=== PATIENT | female | born 1980 | race Caucasian/White ===

== ENCOUNTER 2018-06-01 09:02 | Emergency (ER) | payer MEDICAID ==
[~2018-06-01] VITALS: Ht 175.3 cm; Wt 74.6 kg
[2018-06-01 09:05] VITALS: BP 121/90
--- NOTE | 2018-06-01 09:40 | NUR ---
PT BIB SELF FOR SWOLLEN LEFT SIDE OF FACE AND PAIN. PT STATES SHE WAS GOING TO GO TO THE DENTIST THIS MORNING FOR A TOOTHACE SHE HAS BEEN HAVING BUT WOKE UP WITH SWOLLEN LEFT SIDE OF FACE. PT STATES THROBBING PAIN, 6/10, CONSTANT. VSS; PATIENT POSITIONED FOR COMFORT; HOB ELEVATED; BEDRAILS UP X1; BED DOWN. ER MD MADE AWARE OF PT STATUS.
[2018-06-01] MEDS ORDERED: PENICILLIN V POTASSIUM 250 MG TAB PO ONE (09:50)
[2018-06-01 10:48] VITALS: BP 121/90
--- NOTE | 2018-06-01 10:49 | NUR ---
Patient discharged with v/s stable. Written and verbal after care instructions given and explained. Patient alert, oriented and verbalized understanding of instructions. Ambulatory with steady gait. All questions addressed prior to discharge. ID band removed. Patient advised to follow up with PMD. Rx of IBUPROFEN AND PENICILLIN given. Patient educated on indication of medication including possible reaction and side effects. Opportunity to ask questions provided and answered.
== END 2018-06-01 10:49 | disposition home or self-care (01) ==
LOC: MED 09:02
DX: K04.7 Periapical abscess without sinus (principal); Z88.2 Allergy status to sulfonamides; Z88.8 Allergy status to other drugs, medicaments and biological substances
CPT/HCPCS: 99283

== ENCOUNTER 2022-03-24 10:59 | Day surgery (SDC) | payer OTHER ==
[~2022-03-24] VITALS: Ht 175.3 cm; Wt 83.9 kg
[2022-03-24] MEDS ORDERED: PROPOFOL 200 MG/20 ML VIAL IV ONE ×3 (11:25→12:22)
[2022-03-24] MEDS ORDERED: fentaNYL citrate 0.05 MG/ML VIAL ONE (11:25)
[2022-03-24 11:48] LABS: BASOPHILS # (AUTO) 0.1 K/uL (0.00-0.22); EOSINOPHILS # (AUTO) 0.3 K/uL (0-0.4); EOSINOPHILS % (AUTO) 3.6 % (0.0-4.0); HEMATOCRIT 37.6 % (36-48); HEMOGLOBIN 12.1 g/dL (12.0-16.0); LYMPHOCYTES % (AUTO) 21.4 % (20.5-51.1); MEAN CORPUSCULAR HEMOGLOBIN 23 pg (27-31); MEAN CORPUSCULAR HGB CONC 32 g/dL (33-37); MEAN CORPUSCULAR VOLUME 71.5 fL (80-94); MONOCYTES # (AUTO) 0.6 K/uL (0.8-1.0); MONOCYTES % (AUTO) 6.7 % (1.7-9.3); NEUTROPHILS # (AUTO) 6.4 K/uL (1.8-7.7); NEUTROPHILS % (AUTO) 67.3 % (42.2-75.2); PLATELET COUNT (AUTO) 274 K/uL (140-450); RED BLOOD CELL COUNT(AUTO) 5.26 MIL/uL (4.20-5.40); RED CELL DISTRIBUTION WIDTH 15.7 % (11.6-13.7); WHITE BLOOD COUNT (AUTO) 9.6 K/uL (4.8-10.8)
[2022-03-24] MEDS ORDERED: ONDANSETRON 4 MG/2 ML VIAL IVP PRN (11:55)
[2022-03-24] MEDS ORDERED: LACTATED RINGERS 1,000 ML IV SCH (11:55)
[2022-03-24] MEDS ORDERED: diphenhydrAMINE 50 MG/ML VIAL IVP PRN (11:55)
[2022-03-24] MEDS ORDERED: HYDROmorphone 1 MG/ML AMP IVP PRN (11:55)
[2022-03-24] MEDS ORDERED: MEPERIDINE 25 MG/ML SYR IVP PRN (11:55)
[2022-03-24 11:59] LABS: ALBUMIN 4.1 g/dL (3.4-5.0); ANION GAP 13.8 (8-16); CARBON DIOXIDE 24.1 mmol/L (21-32); CREATININE 0.8 mg/dL (0.6-1.3); POTASSIUM 3.9 mmol/L (3.5-5.1); TOTAL BILIRUBIN 0.5 mg/dL (0.0-1.0)
[2022-03-24] MEDS ORDERED: fentaNYL citrate 0.05 MG/ML - 50mL vial IV ONE (12:00)
== END 2022-03-24 13:35 | disposition home or self-care (01) ==
LOC: MDS 10:59 → MMU 11:02 → MDS 13:35
PROVIDERS: ATTEND Internal Medicine Gastroenterology
DX: R13.10 Dysphagia, unspecified (principal); K22.2 Esophageal obstruction; K20.0 Eosinophilic esophagitis; K44.9 Diaphragmatic hernia without obstruction or gangrene; K25.9 Gastric ulcer, unspecified as acute or chronic, without hemorrhage or perforation; F32.A Depression, unspecified; G43.909 Migraine, unspecified, not intractable, without status migrainosus; J45.909 Unspecified asthma, uncomplicated; Z85.118 Personal history of other malignant neoplasm of bronchus and lung; Z88.1 Allergy status to other antibiotic agents; Z88.8 Allergy status to other drugs, medicaments and biological substances; Z79.899 Other long term (current) drug therapy
CPT/HCPCS: 36415; 43239; 80053; 85025; 87426; 88305; 88312; 88313; 88342; J2704; J3010

== ENCOUNTER 2022-07-05 11:29 | Emergency (ER) | payer OTHER ==
[~2022-07-05] VITALS: Ht 175.3 cm; Wt 85.3 kg
[2022-07-05 11:37] VITALS: BP 134/80
[2022-07-05] MEDS ORDERED: PROM118S5 PO (13:26)
[2022-07-05] MEDS ORDERED: IBUP-2213 PO (13:26)
[2022-07-05] MEDS ORDERED: SUD30 PO (13:26)
[2022-07-05 14:24] VITALS: BP 134/80
--- NOTE | 2022-07-05 14:24 | NUR ---
Patient discharged with v/s stable. Written and verbal after care instructions given and explained. Patient alert, oriented and verbalized understanding of instructions. Ambulatory with steady gait. All questions addressed prior to discharge. ID band removed. Patient advised to follow up with PMD. Rx of PROMETHAZINE, IBUPROFEN, SUDAFED (SENT) given. Patient educated on indication of medication including possible reaction and side effects. Opportunity to ask questions provided and answered.
== END 2022-07-05 14:24 | disposition home or self-care (01) ==
LOC: MED 11:29
DX: J06.9 Acute upper respiratory infection, unspecified (principal); J45.909 Unspecified asthma, uncomplicated; Z88.2 Allergy status to sulfonamides; Z79.899 Other long term (current) drug therapy; Z88.1 Allergy status to other antibiotic agents; Z88.8 Allergy status to other drugs, medicaments and biological substances
CPT/HCPCS: 71045; 99283